=== PATIENT | female | born 1980 | race Two or more races ===

== ENCOUNTER 2017-08-21 12:46 | Emergency (ER) | payer MEDICAID ==
[~2017-08-21] VITALS: Ht 167.6 cm; Wt 83.0 kg
[2017-08-21] MEDS ORDERED: KETOROLAC 60MG/2ML VIAL IM ONE (22:15)
[2017-08-21] MEDS ORDERED: METHOCARBAMOL 500MG TABLET PO ONE (22:15)
[2017-08-21] MEDS ORDERED: HYDROCODONE/ACETAMINOPHEN 5/325MG TABLET PO ONE (23:45)
[2017-08-22 00:09] VITALS: BP 111/63
== END 2017-08-22 00:10 | disposition home or self-care (01) ==
LOC: ER 14:02
DX: S16.1XXA Strain of muscle, fascia and tendon at neck level, initial encounter (principal); S39.012A Strain of muscle, fascia and tendon of lower back, initial encounter; S63.602A Unspecified sprain of left thumb, initial encounter; J45.909 Unspecified asthma, uncomplicated; F17.200 Nicotine dependence, unspecified, uncomplicated; V49.9XXA Car occupant (driver) (passenger) injured in unspecified traffic accident, initial encounter; Y93.89 Activity, other specified; Y99.8 Other external cause status; Y92.410 Unspecified street and highway as the place of occurrence of the external cause; Z87.442 Personal history of urinary calculi
CPT/HCPCS: 72040; 72100; 73140; 96372; 99284; J1885; Z7610